=== PATIENT | female | born 1980 | race Two or more races ===

== ENCOUNTER 2019-08-22 12:04 | Emergency (ER) | payer BC ==
[~2019-08-22] VITALS: Ht 172.7 cm; Wt 85.3 kg
[2019-08-22 12:10] VITALS: Ht 172.7 cm; Wt 85.3 kg
[2019-08-22 17:13] VITALS: BP 116/76
== END 2019-08-22 17:14 | disposition short-term general hospital (02) ==
LOC: ED 12:04
DX: M25.561 Pain in right knee (principal); W22.8XXA Striking against or struck by other objects, initial encounter; Y93.89 Activity, other specified; Y92.89 Other specified places as the place of occurrence of the external cause; Y99.8 Other external cause status
CPT/HCPCS: Q0092